=== PATIENT | female | born 1990 | race Hispanic/Latino ===

== ENCOUNTER 2016-09-15 04:29 | Inpatient (IN) | payer OTHER ==
[~2016-09-15] VITALS: Ht 149.9 cm; Wt 68.9 kg
[~2016-09-15 04:29] MED LIST: HYDR30CR76 RC; ZOV800 PO
[2016-09-15] MEDS ORDERED: Lactated Ringer's 1,000 ML IV PRN (04:42)
[2016-09-15] MEDS ORDERED: Hemorrhage Kit, Post Partum XX ONE ×2 (04:45→09:05)
[2016-09-15] MEDS ORDERED: Oxytocin 10 Unit/mL Inj IM PRN ×2 (04:45→09:05)
[2016-09-15] MEDS ORDERED: Methylergonovine 0.2 mg/mL Inj IM PRN ×2 (04:45→09:05)
[2016-09-15] MEDS ORDERED: Sodium Chloride LOK Flush 10 mL Syringe IVFLUSH PRN (04:45)
[2016-09-15] MEDS ORDERED: Carboprost 250 mCg/mL Inj IM PRN ×2 (04:45→09:05)
[2016-09-15] MEDS ORDERED: fentaNYL-PF 50 mCg/mL 2 mL Inj IVPUSH PRN (04:45)
[2016-09-15] MEDS ORDERED: Oxytocin 30 Units/500 mL LR 30 UNITS in IV Premix 1 EACH IV PRN ×2 (04:45→09:05)
[2016-09-15] MEDS ORDERED: Ondansetron 2 mg/mL 2 mL Inj IVPUSH PRN (04:45)
[2016-09-15 05:10] LABS: Mean Corpuscular Hemoglobin 29.6 pg (27.0-35.0); Mean Corpuscular Volume 92.1 fL (81-100)
[2016-09-15] MEDS: Lactated Ringer's 1,000 ML IV SCH ×5 (06:25→22:25)
[2016-09-15] MEDS ORDERED: Atropine 1 mg/10 mL (Code) Syringe IVPUSH PRN (06:25)
[2016-09-15] MEDS ORDERED: EPHEDrine Sulfate 50 mg/mL Inj IVPUSH PRN (06:25)
[2016-09-15] MEDS ORDERED: fentaNYL 2 mCg/mL-Bupiv 0.125% 100 ML EPIDURAL SCH (06:25)
[2016-09-15] MEDS ORDERED: Lactated Ringer's 500 ML IV ONE (06:25)
--- NOTE | 2016-09-15 06:25 | PCM.HPANE ---
Patient Data Date of Service: Sep 15, 2016 Surgeon Admitting Provider:Latoya Hernández MD Attending Provider:Latoya Hernández MD Primary Care Physician:Yonatan Jacobs MD Other Provider:Devon Stallings Anesthesia Reason for Visit Active Labor ACTIVE LABOR Ht/WT & BMI Body Mass Index Allergies Coded Allergies: No Known Allergies (Verified Allergy, Unknown, 10/30/15) Past Anesthesia History Anesthesia History: Denies:: Anesthesia Reactions Diabetes History Hx Diabetes?: No MRSA MRSA: No Medications Hypertension Medication: No Home Meds Incl Beta Trevon: No Active Scripts Hydrocortisone (Anusol-Hc)30 Gm Cream..g.30 Gm RC TID #1 TUBE Prov:Lindsey Chowdary LEGAL RESEARCHER 04/25/16 Acyclovir 800 Mg [id number] Mg PO TID 10 Days Ref 0 Prov:AsadMonique valenzuela LEGAL RESEARCHER 04/22/15 History History of ENT Problems?: No Hx of Heart Problems?: No Cardiovascular History: Denies:: Chest Pain Congestive Heart Failure Hypertension Hx of Respiratory Problem?: No Respiratory History: Denies:: Tuberculosis Hx Neurologic Problems?: No Neurological History: Denies:: CVA Seizures TIA Hx of GI Problems?: No Gastrointestinal History: Denies:: Gastroesphageal Reflux Hx of Problems?: No HX of Peritoneal Dialysis: No Female Hx: Positive for:: Currently Hx Musculoskeletal Problems?: No Hx of Psycho/Social Problems?: No Hx Surgeries?: Yes Hx Any Other Health Problems?: No Hx Diabetes: No Hx Alcohol Use: NoHx Substance Use: No Smoking Status: Never Smoker Have You Smoked inLast 12 mo: No Stop/Bang Treated for Sleep Apnea?: No Do You Have a CPAP Machine?: No S-Snoring: Do You Snore Loudly: No T-Tired: feel tired, fatigued: No O-Obsered: Observed not breath: No P-Blood Pressure: treated: No B- Body Mass Index > 35 kg/m2: No A- Age over 50: No N- Neck Large Circumference: No G- Gender Male: No JOSE Risk Assessment: Low Risk, <3 Yes Risk Assessment Category Category 1A: Patient has history of documented sleep apnea, and HAS NOT received any narcotic, sedative or anesthesia administration during this stay. Category 1B: Patient has history of documented sleep apnea, and HAS received any narcotic , sedative or anesthesia administration during this stay Category 2: Patient has SUSPECTED Obstructive Sleep Apnea, and HAS received any narcotic , sedative or anesthesia administration during this stay. Category 3: Patient has SUSPECTED Obstructive Sleep Apnea and HAS NOT received narcotic, sedative or anesthesia administration during this stay. Category 4: Outpatient in Procedural Areas with known sleep apnea or who screen positive for High Risk via the STOP/BANG questionnaire. Exam Exam General Appearance: Alert, Oriented X3, Cooperative, No Acute Distress HEENT/AIRWAY: MP 2, Neck Movement (FROM), Mouth Opening (3), Other (TMD3) Lungs: Clear to Auscultation Heart: Exam Unremarkable, Regular Rate/Rhythm, Normal S1, Normal S2, No Murmurs /Rubs/Gallops Meds/Labs/Diagnostics Labs Test 09/15/16 04:55 White Blood Count 9.3th/mm3 (3.8-10.1) Red Blood Count 4.19mil/mm3 (3.90-5.20) Hemoglobin 12.4g/dL (12.0-15.6) Hematocrit 38.6% (35.0-46.0) Mean Corpuscular Volume 92.1fL (81-100) Mean Corpuscular Hemoglobin 29.6pg (27.0-35.0) Mean Corpuscular Hemoglobin Concent 32.1% (32.0-37.0) Red Cell Distribution Width 14.0% (12.3-15.4) Platelet Count 164bil/L (150-400) Plan Impression Patient chart reviewed, patient interviewed and anesthestic plan with risks, benefits, and alternatives discussed, and informed consent obtained. ASA Physical Status: ASA2 Mod Systemic Disease Anesthetic Plan: Epidural Bene/Risks/Altern/Consents: Yes HP Complete Prior to Induction: Yes Bay Gates MD Sep 15, 2016 06:25
--- NOTE | 2016-09-15 08:27 | PCM.HPOB ---
Subjective Referring Provider: Admitting Physician: Latoya Hernández MD Primary Care Physician: Yonatan Jacobs MD Attending Physician: Latoya Hernández MD Chief Complaint Active labor History of Present History of Present Illness Ms. Dia is a at 39 weeks 2 days presents to [facility] in active labor on the morning of 09/15/16. Past was 5 hour labor 7lb with vacuum. LUISA based on LMP is 09/20/2016, LUISA based on 9 week US 09/19/2016. Membranes stripped 09/14/2015. She had reported SRM in between 5 and 6 am, fluid reported to be clear with normal alison show. Her has been uncomplicated. Pt fist started noticing contractions late last night/early this morning. Pt received pudendal block secondary to pain with violent body shaking and thrashing followed by epidural at 06:52 with effect. At time of dictation Pt was at -1 station fully effaced and dilated, baby position ROP and in left lateral cubitus position. Contractions 1-2 min apart. Blood pressure was with in normal limits between contractions. pt O positive, GBS negative no complications this , rubella non-immune. Past Medical History Gynecologic History: Right ovarian cyst 06/14/2016 dimensions measured at 6 x 3.5 x 6.6cm increased in size from 05/13/2016 where it was measured to be 5 x 4.7 x 5.6cm. Labial cyst Medical History: B12 deficiency, arthralgia, neuropathy, onychomycosis. Abnormal PAP 2011 Surgical History: LEEP procedure 2010. Hx Tobacco Use: No Hx Alcohol Use: No Hx Substance Use: No Past Family History Living Arrangement: with Family Genetic Screening/Counseling Genetic Screening/Counseling: Positive (Quad screen negative) Review of Systems Constitutional: Y: Chills, Fever Eyes: Denies: Blurred Vision, Vision Changes Cardiovascular: Denies: Chest Pain, Palpitations Respiratory: Denies: Cough, Pleuritic Chest Pain, Wheezing Gastrointestinal: Reports: Abdominal Pain, Denies: Constipation, Diarrhea, Nausea, Vomiting Genitourinary: Denies: Dysuria Neurological: Denies: Dizziness, Numbness, Weakness Medications Home medications vitamin Allergy Coded Allergies: No Known Allergies (Verified Allergy, Unknown, 10/30/15) Exam Vital Signs Mother BP - 122/80 HR - 77, Temp - 97.7 RR 16 Exam FHR 130 category 2 tracing. Moderate variable decels. Contractions palpable and strong Constitutional: Well-developed, Well-nourished, Normal habitus HEENT: Atraumatic, EOMI Lungs: Clear to Auscultation, Normal Air Movement Heart: Exam Unremarkable, Regular Rate/Rhythm Abdomen: Gravid Extremities: No Edema Neurological/Psychiatric: Alert, Oriented X3, Cooperative Neuro: Grossly Neurologically Intact Labs/Diagnostics Labs WBC 9.3 Hgb/Hct 12.4/38.6 MCV 92.1 Plt count 164 Maternal Blood Type: O (Positive) Antibody Screen: negative Group B Strep Results: Negative Previous with GBS: No Rubella: Non-Immune Additional Information Varicella immune, RPR NR, HBs antigen negative, HIV NR, Normal PAP 04/17/2016, TdAP and flu vax given. TSH 0.132, HCV negative. Gestational DM screening normal. OB Intrapartum Assessment/Plan Assessment 25 female in active labor. Problems: (1) Active labor at term Plan: Continue expectant management, anticipate vaginal delivery today Status: Acute ICD Code: [id number] Pain Evaluation: Adequate Pain Control DANN VILLALTA DO Sep 15, 2016 08:27
[2016-09-15] MEDS ORDERED: Hepatitis-B (PED)(DSHS) 10 mCg/0.5 ML Vaccine IM ONE (08:40)
[2016-09-15] MEDS ORDERED: Sucrose 24% 15 mL Solution PO PRN (08:40)
[2016-09-15] MEDS ORDERED: Phytonadione (Neonate) 1 mg/0.5 mL Inj IM ONE (08:40)
[2016-09-15] MEDS ORDERED: Erythromycin 0.5% 1 Gm Ophthalmic Ointment BOTH_EYES ONE (08:40)
[2016-09-15] MEDS ORDERED: Benzocaine (Dermoplast) 20% 60 Gm Spray TOPICAL PRN (09:05)
[2016-09-15] MEDS ORDERED: LANOlin HPA 7 Gm Ointment TOPICAL PRN (09:05)
[2016-09-15] MEDS ORDERED: Witch Hazel-Glycerin Pads TOPICAL PRN (09:05)
[2016-09-15] MEDS ORDERED: oxyCODONE-Acetamin 5-325 mg Tablet PO PRN (09:05)
[2016-09-15] MEDS ORDERED: Measles-Mumps-Rubella Vaccine 0.5 mL Inj SUBQ ONE (09:05)
[2016-09-15] MEDS: Ascorbic Acid 500 mg Tablet PO SCH (18:02)
--- NOTE | 2016-09-15 20:47 | OP ---
[address] [address] OPERATIVE REPORT PATIENT: REMY BENTON : 1990 MR#: [id number] ADMIT: 09/15/2016 JOB ID: [id number] DATE OF SURGERY: 09/15/2016 SURGEON: Lusi A Harrison MD PREOPERATIVE DIAGNOSIS(ES): A 25-year-old, 2, para 0, at 39 weeks and two days in active labor. POSTOPERATIVE DIAGNOSIS(ES): A 25-year-old, 2, para 0, at 39 weeks and two days in active labor, status post spontaneous vaginal delivery at term. The patient is a 25-year-old, 2, para 1 now who came to Labor and Delivery early in the morning of September 15, 2016 at 4:30 a.m. with complaint of contractions. The patient was seen in the clinic the day before where she had membranes stripped. The patient was examined at admission and was found to be 5 cm dilated, 80% effaced, station -2, she was admitted for delivery. The patient progressed to complete dilation at 5:30 a.m. She was very uncomfortable. She received an epidural. The presentation was occiput posterior. The amniotic fluid was clear. The patient received pudendal block followed by an epidural. She started pushing at 6 a.m. Occiput posterior was reverted to occiput anterior. The patient continued pushing and underwent spontaneous vaginal delivery at 8:28 a.m. Delivered male with a weight 3250 g and Apgars 9 at one minute and 9 at five minutes. Estimated blood loss was 250 mL. Placenta was delivered 3 minutes later and was found to be intact with three-vessel cord. The patient had a small mucosal laceration at the posterior fourchette of the vagina, degree 1, that was repaired with one [id number] 2-0 chromic suture. No complications.
--- NOTE | 2016-09-16 03:23 | NUR ---
observed pt attempting to breastfeed baby at 0305- baby was not very interested and mom will need further assistance if she wants to continue to do both. MOB is holding baby w/ a more advanced hold- encouraged mom to have a hold on both her breast and baby's head. parents seem as those they have a lack of interest in as they were automatically getting the bottle ready to feed- parents encouraged to try breast first and then give bottle if they want to continue w/ . Baby took 20ml from bottle over about 5mins after attempt to breastfeed. Addendum: 09/16/16 at 0343 by JUAN PABLO JEFF RN DOCUMENTED ON INCORRECT PATIENT- ERROR
[2016-09-16 07:20] LABS: Mean Corpuscular Hemoglobin 30.1 pg (27.0-35.0); Mean Corpuscular Volume 94.3 fL (81-100)
--- NOTE | 2016-09-16 08:00 | PCM.PNOBPP ---
Subjective Date of Service Sep 16, 2016 Post : Spontaneous Vaginal Delivery Subjective 25 y/o female G2 now P2 s/p without complication. Mother and baby are doing well. Pt is ambulating in room, reports no fever, chills, KELLEY, N/V, CP, SOB. Endorsed light vaginal discharge - clots and abdominal tenderness. Lochia: Normal Pain Management: PO pain meds Gastrointestinal: Good Appetite, No N/V, Passing Flatus Group B Strep Results: Negative Rubella: Non-Immune Blood Type: O (Positive) Labs Laboratory Tests 09/16/16 06:57: Exam Vital Signs Vital Signs BP - 108/54, HR - 89, RR - 16, temp - 36.2 Vital Signs: VS reviewed, stable Exam Abdomen: Uterus is (2 finger breadths below umbilicus) Extremities: Normal pulses, No edema Lungs: Clear to Auscultation, Normal Air Movement Heart: Exam Unremarkable, Regular Rate/Rhythm General: Alert, Oriented X3, Cooperative OB Post Assessment/Plan Assessment 25 y/o female G2 P(2now). s/p , mother and baby doing well. Problems: (1) Spontaneous vaginal delivery Plan: without complications. Mother and baby doing well. Anticipate discharge home today. Status: Resolved ICD Code: O80 Pain Evaluation: Adequate Pain Control Attending Statement The patient was seen and examined together with Dr. Wilton Florian DO on 2016 and I agree with the history, exam and plan as outlined in the note above. WILTON FLORIAN DO Sep 16, 2016 08:00 Yonatan Jacobs MD Sep 30, 2016 15:19
--- NOTE | 2016-09-16 08:05 | PCM.DC.OB ---
Obstetrical Discharge Summary Date of Service Sep 16, 2016 Date of hospital admission Sep 15, 2016 at 04:45 Date of Discharge: Sep 16, 2016 Providers Admitting Physician: Latoya Hernández MD Primary Care Physician: Yonatan Jacobs MD Attending Physician: Latoya Hernández MD Problems: (1) Spontaneous vaginal delivery Plan: without complications. Mother and baby doing well. Status: Resolved ICD Code: O80 Brief History and Physical: Ms. Dia is a at 39 weeks 2 days presents to [facility] in active labor on the morning of 09/15/16. Past was 5 hour labor 7lb infant with vacuum. LUISA based on LMP is 09/20/2016, LUISA based on 9 week US 09/19/2016. Membranes stripped 09/14/2015. She had reported SRM in between 5 and 6 am, fluid reported to be clear with normal alison show. Her has been uncomplicated. Pt fist started noticing contractions late last night/early this morning. Pt received pudendal block secondary to pain with violent body shaking and thrashing followed by epidural at 06:52 with effect. At time of dictation Pt was at -1 station fully effaced and dilated, baby position ROP and in left lateral cubitus position. Contractions 1-2 min apart. Blood pressure was with in normal limits between contractions. pt O positive, GBS negative no complications this , rubella non-immune. Hospital Course: Pt presented to [facility] in active labor after having membranes stripped the day prior. Pt received pudendal nerve block and epidural. Pt delivered healthy male infant at 8;28 on 09/15/2015 without complication. Mother and baby recovered well. Pain well controlled. Pt ambulatory, urinating without difficulty and passing flatus. Acyclovir (Acyclovir) 800 Mg Tab 800 MG PO TID Prescribed by: VOLODYMYR PAGE Hydrocortisone (Anusol-Hc) 30 Gm Cream..g. 30 GM RC TID Prescribed by: VOLODYMYR DELGADO Discharge Medications: Iron and Vit C supplement, Colace, ibuprofen Disposition Discharge to home in stable condition Follow-[facility] Discharge Diet: No restrictions Discharge Activity-General: Pelvic Rest for 6 weeks, Pelvic Rest, Try not to overdue, Be up and about, Balance rest and activity, Activity as pain allows, Activity as energy allows, No lifting >15 pounds for 2 weeks Patient instructions Be sure to follow up in 6 weeks at [facility]. You have been given a prescription for ibuprofen to take as needed for pain. You have also been given a prescription for iron and Vitamin C supplement Iron can give you constipation so you have also been given a prescription for docusate to keep you regular. Pelvic rest for 6 weeks (nothing per vagina including intercourse, tampons) If you have a fever greater than 100.4, please call [facility]. There is always someone certified detention deputy to talk to. If you have an increase in bleeding, call [facility]. If you have a lot of bleeding suddenly, especially if you have symptoms of dizziness & weakness with it, get emergency help. If you start experiencing extreme depression, especially if you feel that you are a danger to yourself or your family, seek emergency help. You have been through a lot -- BE SURE TO TAKE CARE OF YOURSELF. DANN VILLALTA DO Sep 16, 2016 08:05
--- NOTE | 2016-09-16 08:10 | PCM.DIOB ---
Obstetrical Disch Instruction Date of Service: Sep 16, 2016 Dates of Hospitalization Date of Hospital Admission Sep 15, 2016 at 04:45 Providers Admitting Physician: Latoya Hernández MD Primary Care Physician: Yonatan Jacobs MD Attending Physician: Latoya Hernández MD Discharge Diagnosis Problems: (1) Spontaneous vaginal delivery Plan: without complications. Mother and baby doing well. Discharge to home. Status: Resolved ICD Code: O80 Diet Discharge Diet: No restrictions Activity Discharge Activity-General: Pelvic Rest for 6 weeks, Try not to overdue, Be up and about, Balance rest and activity, Activity as pain allows, Activity as energy allows, No lifting >15 pounds for 2 weeks Dressing and Incisional Care Hygiene: May shower Additional Instructions Discharge Instructions Be sure to follow up in 6 weeks at [facility]. You have been given a prescription for ibuprofen to take as needed for pain. You have also been given a prescription for iron and Vitamin C supplement Iron can give you constipation so you have also been given a prescription for docusate to keep you regular. Pelvic rest for 6 weeks (nothing per vagina including intercourse, tampons) If you have a fever greater than 100.4, please call [facility]. There is always someone medication care manager to talk to. If you have an increase in bleeding, call [facility]. If you have a lot of bleeding suddenly, especially if you have symptoms of dizziness & weakness with it, get emergency help. If you start experiencing extreme depression, especially if you feel that you are a danger to yourself or your family, seek emergency help. You have been through a lot -- BE SURE TO TAKE CARE OF YOURSELF. Follow Up Plan Follow Up Plan Fu in [facility] in 6 weeks Call your provider for: Fever or Chills, Shortness of breath, Heavy vaginal bleeding, Heavy bleeding, Epigastric pain, Excessive constipation, Vaginal discomfort, Red painful breasts DANN VILLALTA DO Sep 16, 2016 08:10
[2016-09-16] MEDS ORDERED: DOCU-41 PO (08:12)
[2016-09-16] MEDS ORDERED: FERR-74 PO (08:12)
[2016-09-16] MEDS ORDERED: IBUP800T28 PO (08:12)
[2016-09-16] MEDS ORDERED: Ascorbic Acid PO (08:12)
[2016-09-16] MEDS: Ascorbic Acid 500 mg Tablet PO SCH (08:38)
[2016-09-16 14:11] VITALS: BP 107/58; PULSE 88; RESP 16
== END 2016-09-16 15:50 | disposition home or self-care (01) | DRG 560 ==
LOC: FBCO 04:29 → FBC 04:45
PROVIDERS: ADMIT Obstetrics & Gynecology; ATTEND Obstetrics & Gynecology
PROC: 0HQ9XZZ Repair Perineum Skin, External Approach (ICD-10-PCS; principal; 2016-09-15)
PROC: 10E0XZZ Delivery of Products of Conception, External Approach (ICD-10-PCS; 2016-09-15)
DX: O70.0 First degree perineal laceration during delivery (principal); Z3A.39 39 weeks gestation of pregnancy; Z37.0 Single live birth